=== PATIENT | male | born 1970 | race Asian ===

== ENCOUNTER → 2023-04-04 09:07 | Outpatient (CLI) | payer BC, SELFPAY ==
[2023-04-04 10:58] LABS: Add Manual Diff / Slide Review NO; Basophils Absolute Auto 0 /uL (0-100); Basophils Percent Auto 0.4 % (0-2); Eosinophils Absolute Auto 200 /uL (0-450); Eosinophils Percent Auto 3.1 % (2-4); Hematocrit 43.8 % (41-53); Hemoglobin 14.5 g/dL (13.5-17.5); Lymphocytes Absolute Auto 1700 /uL (1100-4500); Lymphocytes Percent Auto 24.6 % (25-40); Mean Corpuscular HGB Conc 33.2 % (30-36); Mean Corpuscular Hemoglobin 30.4 PG (26-34); Mean Corpuscular Volume 91.4 fL (80-100); Monocytes Absolute Auto 600 /uL (0-900); Monocytes Percent Auto 8.7 % (3-14); Neutrophils Absolute Auto 4400 /uL (1500-7000); Neutrophils Percent Auto 63.2 % (50-75); Platelet Count 283 X10^3/uL (150-400); Red Blood Cell Count 4.79 X10^6/uL (4.5-5.9); Red Cell Distribution Width 17.5 % (11.6-14.8)
[2023-04-04 11:14] LABS: Alanine Aminotransferase 26 IU/L (<50); Albumin 4.4 g/dL (3.5-5.0); Albumin Globulin Ratio 1.2 (1.0-2.8); Alkaline Phosphatase 91 U/L (38-126); Aspartate Aminotransferase 27 IU/L (17-59); BUN Creatinine Ratio 15.9 (6-22); Bilirubin Total 0.7 mg/dL (0.2-1.3); Blood Urea Nitrogen 20 mg/dL (9-20); Calcium 9.2 mg/dL (8.4-10.2); Carbon Dioxide 27 mmol/L (22-32); Chloride 101 mmol/L (98-107); Cholesterol 168 mg/dL (140-199); Estimated Glomerular Filt Rate > 60 mL/min (>60); Globulin 3.8 g/dL (1.7-4.1); Glucose 142 mg/dL (70-100); HDL Cholesterol 52 mg/dL (40-60); HEMOLYSIS < 15 (0-50); LDL Cholesterol Calculated 93 mg/dL (<100); Potassium 4.5 mmol/L (3.4-5.1); Sodium 140 mmol/L (137-145); Total Protein 8.2 g/dL (6.3-8.2); Triglycerides 116 mg/dL (35-150); Uric Acid 5.9 mg/dL (3.5-8.5)
[2023-04-04 11:24] LABS: T4 Total Thyroxine 8.67 ug/dL (5.5-11.0)
[2023-04-04 11:38] LABS: Prostate Specific Antigen 0.601 ng/mL (0.10-4.00); Thyroid Stimulating Hormone 2.96 uIU/mL (0.47-4.68)
[2023-04-06 05:36] LABS: x Labcorp Estim. Avg Glu (eAG) 174 mg/dL (.); x Labcorp Hemoglobin A1c 7.7 % (4.8-5.6)
== END ==
PROVIDERS: PCP Physician Assistant; Referring Provider Physician Assistant; Visit Provider Physician Assistant
DX: E11.9 Type 2 diabetes mellitus without complications (principal); E78.5 Hyperlipidemia, unspecified; I10 Essential (primary) hypertension; M10.9 Gout, unspecified; R53.83 Other fatigue; Z12.5 Encounter for screening for malignant neoplasm of prostate
CPT/HCPCS: 36415; 80053; 80061; 83036; 84153; 84436; 84443; 84550; 85025

== ENCOUNTER → 2023-04-12 12:12 | Outpatient (CLI) | payer BC, SELFPAY ==
[2023-04-12 14:47] LABS: Creatinine Urine Random 97.6 mg/dL
[2023-04-12 14:54] LABS: Microalbumi Creatinin Ratio Ur 27.6 ug/mg CR (<30); Microalbumin Urine Random 2.7 mg/dL (0-1.6)
== END ==
LOC: LAB 12:14
PROVIDERS: PCP Physician Assistant; Referring Provider Physician Assistant; Visit Provider Physician Assistant
DX: E11.21 Type 2 diabetes mellitus with diabetic nephropathy (principal)
CPT/HCPCS: 82043; 82570

== ENCOUNTER → 2023-05-30 08:28 | Outpatient (CLI) | payer BC, SELFPAY ==
--- NOTE | 2023-05-30 08:29 | DI.MRI.S_ITS ---
PROCEDURE: MR ANKLE RT WO CON INDICATIONS: Right foot pain/achiles tendinosis of right ankle TECHNIQUE: Noncontrast sagittal T1 spin echo and T2 fast spin echo with fat saturation, axial proton density fast spin echo and T2 fast spin echo with fat saturation, coronal T1 spin echo and T2 fast spin echo with fat saturation through the ankle/hindfoot. COMPARISON: [facility], CR, XR FOOT 3 VIEWS WEIGHT BEARING RIGHT, 05/02/2023, 16:30. FINDINGS: Image quality: Excellent. Bones and joints: No acute trabecular bone injury or fracture. No hindfoot coalitions. No osteochondral injuries of the talar dome. Mild degenerative spurring at the dorsal aspect of the talonavicular joint. Nonedematous type 2 os navicular is noted. Medial structures: The deltoid ligament and the spring ligament complex are intact. The posterior tibialis, flexor digitorum longus, and flexor hallucis longus tendons are intact. The posterior tibial neurovascular bundle appears normal within the tarsal tunnel, without extrinsic mass effect. Lateral structures: Remote prior low-grade sprain of the anterior talofibular ligament. The calcaneofibular ligament and the posterior talofibular ligament are intact. The anterior and posterior tibiofibular ligaments are intact. Moderate peroneus brevis and longus tendinosis. There is mild partial effacement of the fat signal in the sinus tarsi. Anterior structures: The tibialis anterior, extensor hallucis longus, and extensor digitorum longus tendons appear intact. Posterior and plantar structures: There is thickening of the Achilles tendon with intermediate intrasubstance signal consistent with moderate to severe tendinosis. No significant tendon tearing is seen. There is a small nonedematous posterior calcaneal enthesophyte. The proximal plantar fascia is mildly thickened without surrounding edema. No abductor digiti minimi muscle atrophy to suggest Abarca neuropathy. IMPRESSION: 1. 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 No significant tendon tearing is seen. 2. Mild chronic proximal plantar fasciitis. 3. Moderate peroneus brevis and longus tendinosis. 4. Remote prior grade 1 sprain of the anterior talofibular ligament. Approved by: Darron Bowie M.D. on 05/30/2023 at 11:40
== END ==
LOC: MRI 08:28
PROVIDERS: PCP Physician Assistant; Referring Provider Podiatrist Foot & Ankle Surgery; Visit Provider Podiatrist Foot & Ankle Surgery
DX: S93.491A Sprain of other ligament of right ankle, initial encounter (principal); M79.671 Pain in right foot; M67.873 Other specified disorders of tendon, right ankle and foot; M62.461 Contracture of muscle, right lower leg; M72.2 Plantar fascial fibromatosis
CPT/HCPCS: 73721